=== PATIENT | female | born 1960 | race Caucasian/White ===

== ENCOUNTER 2017-01-25 09:52 | Outpatient (CLI) | payer OTHER ==
[2017-01-25 10:14] LABS: BASOPHILS # (AUTO) 0.1 K/uL (0-0.2); BASOPHILS % (AUTO) 1.2 % (0.0-3.0); EOSINOPHILS # (AUTO) 0.4 K/ul (0.0-0.7); EOSINOPHILS % (AUTO) 4.5 % (0.0-7.0); HEMATOCRIT 37.8 % (37.0-47.0); HEMOGLOBIN 12.7 g/dl (12.0-16.0); IMMATURE GRANULOCYTE % (AUTO) 0.2 % (0.0-5.0); LYMPHOCYTES # (AUTO) 2.6 K/uL (0.60-3.4); LYMPHOCYTES % (AUTO) 28.8 (10.0-50.0); MEAN CORPUSCULAR HEMOGLOBIN 30.2 pg (27.0-31.0); MEAN CORPUSCULAR HGB CONC 33.6 (31.8-35.4); MONOCYTES # (AUTO) 0.8 K/uL (0.4-2.0); MONOCYTES % (AUTO) 8.6 (0-10); NEUTROPHILS # (AUTO) 5.1 K/ul (2.0-6.9); NEUTROPHILS % (AUTO) 56.7; PLATELET COUNT 342 10^3/uL (140-440); WHITE BLOOD COUNT 9.04 K/ul (4.6-10.2)
[2017-01-25 10:40] LABS: ALANINE AMINOTRANSFERASE 76 U/L (12-78); ALBUMIN 3.3 g/dL (3.4-5.0); ALBUMIN/GLOBULIN RATIO 0.79; ALKALINE PHOSPHATASE 135 U/L (42-98); AMYLASE 39 U/L (25-115); ANION GAP 11.4; ASPARTATE AMINO TRANSFERASE 83 U/L (15-37); BILIRUBIN,TOTAL 0.39 mg/dL (0.00-1.20); BLOOD UREA NITROGEN 7 mg/dL (7-18); BUN/CREATININE RATIO 8.86; CALCIUM 9.1 mg/dL (8.2-10.2); CARBON DIOXIDE 23 mmol/L (21-32); CHLORIDE 106 mmol/L (98-107); CHOL/HDL RATIO 2.6 (4.5-5.5); CHOLESTEROL 139 mg/dL (0-200); CREATININE 0.79 mg/dL (0.60-1.30); GLUCOSE 101 mg/dL (70-110); HDL CHOLESTEROL 54 mg/dL (35-80); POTASSIUM 4.4 mmol/L (3.5-5.10); SODIUM 136 mmol/L (136-145); TOTAL PROTEIN 7.5 g/dL (6.4-8.2); TRIGLYCERIDES 61 mg/dL (30-150); VLDL CHOLESTEROL 12 mg/dL (2-30)
[2017-01-25 10:42] LABS: LIPASE < 4 U/L (8-78)
== END 2017-01-25 09:53 | disposition home or self-care (01) ==
LOC: LAB 09:52
PROVIDERS: ATTEND Internal Medicine Rheumatology
DX: E11.9 Type 2 diabetes mellitus without complications (principal); R10.9 Unspecified abdominal pain; K86.1 Other chronic pancreatitis; R63.5 Abnormal weight gain; R11.0 Nausea; M05.79 Rheumatoid arthritis with rheumatoid factor of multiple sites without organ or systems involvement
CPT/HCPCS: 36415; 80053; 80061; 82150; 83036; 83690; 85025

== ENCOUNTER 2017-01-28 07:06 | Outpatient (CLI) ==
--- NOTE | 2017-01-28 11:16 | US ---
Exam: [place]-scale and color Doppler ultrasonographic evaluation of the right upper quadrant. Comparison: Ultrasound of the pelvis performed 10/31/2013. Reason for exam: Elevated LFTs. FINDINGS: The liver was not able to be accurately measured secondary to overlying bowel gas. The he patic parenchyma has a heterogeneous appearing echotexture with normal antegrade portal venous flow. There is no obvious intrahepatic ductal dilatation or perihepatic free fluid. The gallbladder is been removed. The common bile duct measures 0.38 cm without evidence of intraluminal stone or polyp. The patient has had a partial pancreatectomy. The right kidney measures 9.65 x 5.17 x 4.18 cm without hydronephrosis or nephrolithiasis. Impression: Limited evaluation secondary to overlying bowel gas with a heterogeneous appearing hepat ic echotexture. No acute imaging findings are seen within the right upper quadrant.
== END 2017-01-28 07:07 | disposition home or self-care (01) ==
LOC: RAD 07:06
PROVIDERS: ATTEND Family Medicine
DX: R79.89 Other specified abnormal findings of blood chemistry (principal)

== ENCOUNTER 2017-03-08 08:25 | Outpatient (CLI) ==
[2017-03-08 09:00] LABS: ALBUMIN 3.1 g/dL (3.4-5.0); ALBUMIN/GLOBULIN RATIO 0.89; ANION GAP 11.1; BILIRUBIN,TOTAL 0.56 mg/dL (0.00-1.20); BUN/CREATININE RATIO 9.33; CALCIUM 8.7 mg/dL (8.2-10.2); CREATININE 0.75 mg/dL (0.60-1.30); POTASSIUM 4.1 mmol/L (3.5-5.10); TOTAL PROTEIN 6.6 g/dL (6.4-8.2)
== END 2017-03-08 08:26 | disposition home or self-care (01) ==
LOC: LAB 08:25
PROVIDERS: ATTEND Physician Assistant Medical
DX: R79.89 Other specified abnormal findings of blood chemistry (principal)
CPT/HCPCS: 36415; 80053

== ENCOUNTER 2017-05-26 08:20 | Outpatient (CLI) ==
[2017-05-26 08:54] LABS: BASOPHILS # (AUTO) 0.1 K/uL (0-0.2); BASOPHILS % (AUTO) 1.2 % (0.0-3.0); EOSINOPHILS # (AUTO) 0.7 K/ul (0.0-0.7); EOSINOPHILS % (AUTO) 7.8 % (0.0-7.0); HEMATOCRIT 38.2 % (37.0-47.0); HEMOGLOBIN 12.3 g/dl (12.0-16.0); IMMATURE GRANULOCYTE % (AUTO) 0.2 % (0.0-5.0); LYMPHOCYTES # (AUTO) 4.3 K/uL (0.60-3.4); LYMPHOCYTES % (AUTO) 50.2 (10.0-50.0); MEAN CORPUSCULAR HEMOGLOBIN 29.6 pg (27.0-31.0); MEAN CORPUSCULAR HGB CONC 32.2 (31.8-35.4); MONOCYTES # (AUTO) 0.8 K/uL (0.4-2.0); MONOCYTES % (AUTO) 9.2 (0-10); NEUTROPHILS # (AUTO) 2.7 K/ul (2.0-6.9); NEUTROPHILS % (AUTO) 31.4; PLATELET COUNT 329 10^3/uL (140-440); RED BLOOD COUNT 4.15 10^6/ul (4.20-5.40); WHITE BLOOD COUNT 8.56 K/ul (4.6-10.2)
[2017-05-26 09:57] LABS: ALBUMIN/GLOBULIN RATIO 0.67; ANION GAP 9.6; BILIRUBIN,TOTAL 0.34 mg/dL (0.00-1.20); BUN/CREATININE RATIO 13.69; CALCIUM 9.1 mg/dL (8.2-10.2); CHOL/HDL RATIO 2.4 (4.5-5.5); CREATININE 0.73 mg/dL (0.60-1.30); POTASSIUM 4.6 mmol/L (3.5-5.10); TOTAL PROTEIN 7.5 g/dL (6.4-8.2)
== END 2017-05-26 08:21 | disposition home or self-care (01) ==
LOC: LAB 08:20
PROVIDERS: ATTEND Physician Assistant Medical
DX: K86.1 Other chronic pancreatitis (principal); M05.9 Rheumatoid arthritis with rheumatoid factor, unspecified; E11.9 Type 2 diabetes mellitus without complications; R10.9 Unspecified abdominal pain; F41.9 Anxiety disorder, unspecified; R79.89 Other specified abnormal findings of blood chemistry
CPT/HCPCS: 36415; 80053; 80061; 83036; 85025

== ENCOUNTER 2017-10-21 08:07 | Outpatient (CLI) | END 2017-10-21 08:08 | disposition home or self-care (01) | LOC: LAB 08:07 | PROVIDERS: ATTEND Internal Medicine Rheumatology | DX: M79.7 Fibromyalgia (principal); M81.0 Age-related osteoporosis without current pathological fracture; M05.79 Rheumatoid arthritis with rheumatoid factor of multiple sites without organ or systems involvement; Z79.899 Other long term (current) drug therapy | CPT/HCPCS: 36415; 80053; 82306; 85025; 85651; 86140 ==

== ENCOUNTER 2017-11-19 08:03 | Outpatient (CLI) | payer OTHER ==
--- NOTE | 2017-11-19 09:39 | DI ---
EXAM: Chest two view, frontal and lateral views. HISTORY: Bronchitis. COMPARISON: None available. FINDINGS: Left subclavian approach chest port is present with tip projecting over the superior vena cava. Components appear intact. The heart size is normal. Left superior intercostal vein noted. T here is no pulmonary vascular congestion. The lungs are clear save for calcified granulomatous asher es. No pleural effusion or pneumothorax is seen. No acute osseous abnormality identified. Clips se en in the left diaphragm. IMPRESSION: No acute cardiopulmonary process.
== END 2017-11-19 08:04 | disposition home or self-care (01) ==
LOC: RAD 08:03
PROVIDERS: ATTEND Physician Assistant Medical
DX: J40 Bronchitis, not specified as acute or chronic (principal); Z00.00 Encounter for general adult medical examination without abnormal findings

== ENCOUNTER 2017-11-25 13:25 | Outpatient (CLI) | payer OTHER ==
--- NOTE | 2017-11-26 11:39 | MAMMO ---
EXAM: Digital screening mammogram with tomosynthesis HISTORY: Screening COMPARISON: None FINDINGS: Digital MLO and CC views of the right and left breast were performed. Tomosynthesis was performed. Computer aided detection utilized. There are scattered fibroglandular densities. Benign bilateral calcifications. There is an asymmetry in the right central superior breast anterior depth . There is no evidence for mass, asymmetry, distortion, or suspicious calcifications in the left silvestre ast. IMPRESSION: 1. Right breast asymmetry. Diagnostic mammogram and possible ultrasound recommended for further hien luation 2. No mammographic evidence of malignancy in the left breast. BIRADS category 0, incomplete
== END 2017-11-25 13:26 | disposition home or self-care (01) ==
LOC: RAD 13:25
PROVIDERS: ATTEND Physician Assistant Medical
DX: Z12.31 Encounter for screening mammogram for malignant neoplasm of breast (principal)
CPT/HCPCS: 77067

== ENCOUNTER 2017-12-03 08:49 | Outpatient (CLI) | payer OTHER ==
--- NOTE | 2017-12-03 09:24 | MAMMO ---
EXAM: Right digital diagnostic mammogram (2-D and 3-D) History: Right breast nodule. Comparison: Bilateral mammogram 11/25/2017 Findings: Right breast density is scattered. Additional spot compression views of the right breast c onfirm a small 12 o'clock right breast nodule. No suspicious microcalcifications. Impression: Indeterminate right breast nodule. Recommend further evaluation with ultrasound. BIRADS 0
--- NOTE | 2017-12-03 09:48 | US ---
EXAM: Right breast ultrasound. History: Right breast mass. Comparison: Right diagnostic mammogram 12/03/2017 Technique: Multiple sonographic images through the right breast were obtained. Color duplex Doppler was used to interrogate vascular flow. Findings: At 12 o'clock 3 cm from nipple there is a 4 mm cyst cluster. This correlates with mammogra phy. No other masses are identified. Impression: Probably benign 12 o'clock right breast cyst cluster. Recommend 6-month follow-up right mammogram and ultrasound to document stability. BIRADS 3
== END 2017-12-03 08:50 | disposition home or self-care (01) ==
LOC: RAD 08:49
PROVIDERS: ATTEND Family Medicine
DX: R92.2 Inconclusive mammogram (principal)

== ENCOUNTER 2018-04-20 08:24 | Outpatient (CLI) | END 2018-04-20 08:25 | disposition home or self-care (01) | LOC: LAB 08:24 | PROVIDERS: ATTEND Physician Assistant Medical | DX: E11.65 Type 2 diabetes mellitus with hyperglycemia (principal); L30.1 Dyshidrosis [pompholyx]; M05.9 Rheumatoid arthritis with rheumatoid factor, unspecified; I10 Essential (primary) hypertension; E55.9 Vitamin D deficiency, unspecified; K86.1 Other chronic pancreatitis; F41.9 Anxiety disorder, unspecified; M79.7 Fibromyalgia; K21.9 Gastro-esophageal reflux disease without esophagitis; M05.79 Rheumatoid arthritis with rheumatoid factor of multiple sites without organ or systems involvement | CPT/HCPCS: 36415; 80053; 80061; 82150; 82306; 83036; 83690; 84443; 85025; 85651; 86140 ==

== ENCOUNTER 2018-06-03 10:32 | Outpatient (CLI) | payer OTHER ==
--- NOTE | 2018-06-03 11:38 | US ---
EXAM: Right breast ultrasound. History: Follow-up right breast mass. Comparison: Right breast ultrasound 12/03/2017 Technique: Multiple sonographic images through the right breast were obtained. Color duplex Doppler was used to interrogate vascular flow. Findings: At 12 o'clock 3 cm from nipple there is a 4 cm cystic lesion that resembles a cyst cluster and is not significantly changed. No developing masses. This correlates with mammography. Impression: Stable probably benign right breast cyst cluster. Recommend follow-up mammogram and ult rasound in 6 months to document stability. BIRADS 3
--- NOTE | 2018-06-03 11:38 | MAMMO ---
EXAM: Right digital diagnostic mammogram (2-D and 3-D) History: Follow-up right breast mass. Comparison: Bilateral mammogram 11/25/2017, right diagnostic mammogram 12/03/2017 Findings: MLO and CC views of bilateral breast demonstrate scattered fibroglandular breast parenchym a. CAD was reviewed by the radiologist. Tomosynthesis was performed. Stable 12 o'clock right breas t nodule. There are no developing masses and no suspicious microcalcifications. No architectural di stortions Impression: Stable right breast nodule is indeterminate. Recommend further evaluation with ultrasou nd. BIRADS 0
== END 2018-06-03 10:33 | disposition home or self-care (01) ==
LOC: RAD 10:32
PROVIDERS: ATTEND Family Medicine
DX: N63.10 Unspecified lump in the right breast, unspecified quadrant (principal)

== ENCOUNTER 2018-09-21 08:19 | Outpatient (CLI) | END 2018-09-21 08:20 | disposition home or self-care (01) | LOC: LAB 08:19 | PROVIDERS: ATTEND Internal Medicine Rheumatology | DX: M05.79 Rheumatoid arthritis with rheumatoid factor of multiple sites without organ or systems involvement (principal); E55.9 Vitamin D deficiency, unspecified; E11.9 Type 2 diabetes mellitus without complications; K86.1 Other chronic pancreatitis | CPT/HCPCS: 36415; 80053; 82150; 82306; 83036; 83690; 85025 ==

== ENCOUNTER 2018-11-04 08:53 | Outpatient (CLI) ==
--- NOTE | 2018-11-04 13:22 | CT ---
CT abdomen and pelvis with and without contrast. HISTORY: Left upper quadrant abdominal pain, spasm since 2019 getting worse. Prior pancreatectomy a nd cholecystectomy. Procedures: Contiguous axial images were obtained through the abdomen and pelvis prior to and follow ing the intravenous administration of contrast. Postcontrast images were obtained during arterial ph ase, portal venous phase and again following a 4-minute delay. Sagittal and coronal reformatted imag es were also created and reviewed. Comparison: Right upper quadrant abdominal ultrasound 01/28/2017. Findings: Calcified granulomata are noted. In the posterior right lung base there is a 4 mm subpleu ral pulmonary nodule in the posterior right lower lobe seen on that delayed axial series 9 image #5. Pneumobilia is noted in the liver with no intrahepatic biliary ductal dilatation. In the dome of th e liver there are three sub-centimeter hypodensities measuring up to 5 mm, too small to characterize. The gallbladder is absent. The spleen is absent. No pancreatic parenchyma is visualized. The kid neys are symmetric in size without radiodense renal stone or hydronephrosis. There is no enhancing r enal mass. The stomach and small bowel appear within normal limits. There is a moderate amount stoo l throughout the colon, the colon demonstrates no dilatation or inflammation. The urinary bladder is mildly distended without radiodense stone or enhancing bladder mass. No free air or free fluid is i dentified in the abdomen or pelvis. There is a 10 mm x 21 mm lymph node in the nydia hepatis. Diffu se atherosclerotic disease is noted, without aortic aneurysm. The portal vein appears patent. Bone windows demonstrate no evidence of acute fracture. There is no osseous erosion. Impressions: Prior cholecystectomy, pancreatectomy and splenectomy. There is a single mildly enlarged lymph node in the nydia hepatis measuring 10 mm x 21 mm, nonspecifi c. If there is clinical concern for malignancy, nuclear Medicine PET scan could be obtained. This i s probably not amenable to percutaneous biopsy due to location. 4 mm subpleural pulmonary nodule in the posterior right lower lobe. Please refer to Fleischner Socie ty recommendations, attached below, for nodule follow-up. Comment: Fleischner Society Recommendations on Incidental Pulmonary Nodule Follow-up: -measurements are for average length and width, non solid (ground glass) or partly solid nodules may require longer follow-up. Low risk patient: (minimal or absent known risk factors) <=4mm- no follow up needed >4-6mm- 12 mo, >6-8mm- initial at 6-12 mo, then 18-24 mo if no change >8mm- follow up CT at 3, 9, 24 mo, dynamic thin slice contrast CT, PET and/or biopsy High risk patient: (history of smoking or other risk factors) <=4mm- follow up CT at 12 mo >4-6mm- initial CT at 6-12 mo then 18-24 mo if no change >6-8mm- initial CT at 3-6, 9-12 then 18-24 mo >8mm- same as low risk
== END 2018-11-04 08:54 | disposition home or self-care (01) ==
LOC: RAD 08:53
PROVIDERS: ATTEND Internal Medicine
DX: K86.1 Other chronic pancreatitis (principal); Z90.410 Acquired total absence of pancreas; R10.13 Epigastric pain; G89.29 Other chronic pain; Z12.11 Encounter for screening for malignant neoplasm of colon
CPT/HCPCS: 36415; 82565

== ENCOUNTER 2018-12-09 10:24 | Outpatient (CLI) | payer OTHER ==
--- NOTE | 2018-12-09 11:27 | US ---
EXAM: Right breast ultrasound. History: Follow-up right breast cyst. Comparison: Right breast ultrasound 06/03/2018 Technique: Multiple sonographic images through the right breast were obtained. Color duplex Doppler was used to interrogate vascular flow. Findings: At 12 o'clock 4 cm from nipple there is a 4.5 mm benign cyst cluster within the right [address] st which is unchanged compared to the prior study. This correlates with mammography. No suspicious masses. Impression: Stable benign right breast cyst cluster. There is no sonographic evidence for malignanc y. Recommend return to routine screening mammography schedule. BIRADS 2, benign
--- NOTE | 2018-12-09 11:31 | MAMMO ---
EXAM: Bilateral digital diagnostic mammogram (2-D and 3-D) History: Follow-up right breast mass. Comparison: Right diagnostic mammogram 06/03/2018, Findings: MLO and CC views of the bilateral breasts demonstrate scattered fibroglandular breast pare nchyma. Stable small nodular density at 12 o'clock within the right breast anterior depth. No devel oping masses. Stable benign bilateral breast calcifications. CAD was reviewed by the radiologist. Tomosynthesis was performed. Impression: Stable indeterminate right breast nodular density at 12 o'clock. Recommend further eval uation with right breast ultrasound. BIRADS 0, incomplete. Further evaluation needed
== END 2018-12-09 10:25 | disposition home or self-care (01) ==
LOC: RAD 10:24
PROVIDERS: ATTEND Family Medicine
DX: R92.2 Inconclusive mammogram (principal); N63.10 Unspecified lump in the right breast, unspecified quadrant

== ENCOUNTER 2019-01-03 13:00 | Outpatient (CLI) ==
--- NOTE | 2019-01-03 14:10 | DEXA ---
EXAM: Bone Densitometry DEXA HISTORY: Senile osteoporosis COMPARISON: None FINDINGS: DEXA scan of the lumbar spine was performed. Quality of the study is good. Bone mineral density is 0.99 grams per square centimeter. T-score is negative 2.1. Z-score is negative 1.3. DEXA scan right and left hip was performed. Quality of the study is good. Bone mineral density mean total is 0.727 grams per square centimeter. T-score is negative 2.2. Z-score is negative 1.6. Bone mineral density the of the femoral neck is 0.670 with a T score of negative 2.6 and a Z score of neg ative 1.7. IMPRESSION: 1. Lumbar spine: Osteopenia. 2. Right and left hip: Osteopenia 3. Right and left femoral neck: Osteoporosis 4. 10 year risk for major osteoporotic fracture is 40% and for hip fracture is 12.1%. Reference Values according to World Health Organization criteria: T score greater than -1 is normal T score -1 to -2.5 is osteopenia T score less than -2.5 is osteoporosis.
== END 2019-01-03 13:01 | disposition home or self-care (01) ==
LOC: RAD 13:00
PROVIDERS: ATTEND Physician Assistant Medical
DX: M81.0 Age-related osteoporosis without current pathological fracture (principal)